=== PATIENT | female | born 1970 | race Caucasian/White ===

== ENCOUNTER 2016-05-07 21:23 | Emergency (ER) | payer BC ==
[2016-05-07 21:29] VITALS: TEMP 98.8; BMI 44.1
--- NOTE | 2016-05-07 21:37 | EDPRACDOC ---
- General Information Chief Complaint: Generalized Weakness Stated Complaint: CVA Time Seen by Provider: 05/07/16 21:29 Information Source: Patient Mode Of Arrival: Ambulance Home Medications: Home Medications Clopidogrel Bisulfate [Plavix] 75 mg PO DAILY 08/29/14 Duloxetine [Cymbalta] 60 mg PO DAILY 08/29/14 Hydrochlorothiazide 12.5 mg PO DAILY 08/29/14 Lisinopril 20 mg PO DAILY 08/29/14 Montelukast Sodium [Singulair] 10 mg PO HS 08/29/14 Amitriptyline HCl [Elavil] 10 mg PO HS 09/23/14 Omeprazole [Prilosec] 20 mg PO DAILY 09/23/14 Potassium Chloride 20 meq PO BID 09/23/14 Metaxalone [Skelaxin] 800 mg PO TID 09/25/14 TOPIRAMATE (Anticonvulsant) [Topamax] 25 mg PO BID 09/25/14 Atorvastatin [Lipitor 40 mg Tablet] 80 mg PO HS 10/05/14 Albuterol Sulfate 2.5 mg NEB Q4-6H PRN 03/22/15 Gabapentin [Neurontin] 300 mg PO TID 03/22/15 Loratadine [Claritin] 10 mg PO DAILY 03/22/15 Oxycodone HCl [Oxycodone Immediate Release] 10 mg PO QID PRN 03/22/15 Pantoprazole Sodium [Protonix] 40 mg PO BID 03/22/15 Pramipexole Di-HCl [Mirapex] 0.25 mg PO QHS 03/22/15 Ranitidine HCl [Zantac] 300 mg PO DAILY 03/22/15 Valacyclovir HCl [Valtrex] 1,000 mg PO BID PRN 03/22/15 Ibuprofen Tablet [Motrin] 600 mg PO Q6H #30 tab 01/23/16 Albuterol Sulfate [Ventolin Hfa] 1 - 2 puff INH Q4H PRN #1 each 04/07/16 Levofloxacin [Levaquin] 750 mg PO DAILY #10 tab 04/07/16 Prednisone [Sterapred DS 10 mg/12 day pack] 48 tab PO DIR #1 pack 04/07/16 Ketoprofen 50 mg PO BID PRN #20 capsule 05/08/16 Allergies/Adverse Reactions: Allergies Allergy/AdvReac Type Severity Reaction Status Date / Time ceftriaxone sodium Allergy Mild rash Verified 05/07/16 21:30 [From Rocephin] - History of Present Illness Onset: 1999 Exact Onset of Symptoms: Known Date Symptoms Started: 05/07/16 Time Symptoms Started: 20:00 HPI: PT STATES SHE HAS NOT FELT WELL "ALL DAY", COMPLAINED OF FEELING GENERALLY WEAK , STATES SHE WAS AT WORK AT 1999 WHEN SHE DEVELOPED RIGHT SIDED HEADACHE, DESCRIBED THROBBING AND SEVERE, COMPLAINS OF "NUMBNESS AND WEAKNESS" IN LEFT ARM AND HAND. PT DENIES CP OR SOBR, NO N/V/D. Symptoms Started: Reports: Suddenly, With light exertion Symptoms Description: Constant Weakness: Left: Arm Symptoms: Reports: Numbness, Weak. Denies: Change of vision, Difficult speech, Faintness, Imbalance, Near Syncope, On Med questionable toxic, Syncope, Tinnitus , Vertigo Symptom Severity: Reports: Unable to performs ADL's Relevant History of: Reports: CVA. Denies: Anemia, DM, Electrolyte disorder, GI Bleed, CA, TIA Associated signs and symptoms:: Reports: Headache. Denies: GI Bleed, Chest pain , Diarrhea, Fever, Nausea, Palpitations, Vomiting ED Past Medical History - History Reviewed Yes Nurses notes reviewed and agree except as marked - Patient Medical History Neurological History: Reports: Cerebrovascular Accident Cardiac History: Reports: Hypertension, Hypercholesterolemia Respiratory History: Reports: Asthma, COPD GI/ History: Reports: Gastroesophageal Reflux, Ulcer Musculoskeletal History: Reports: Arthritis Psychological History: Reports: Anxiety. Denies: Depression, Substance Use Disorder Surgical History: Reports: Hysterectomy - Family Medical History Reports: Hypertension (SIS), Diabetes (DAD), Cancer (MOM, DAD), Stroke (SIS), Cardiac Disorders (DAD) - Social Medical History Smoking Status: Heavy tobacco smoker (5 or more cigarettes/day or daily pipe/ cigar) Social History: Denies: Substance Use Disorder ETOH: Social Substance Abuse: None EDM Review of Systems - Review of Systems Constitutional: negative: Chills, Fever Eyes: negative: Blurred Vision, Double Vision Ears: negative: Drainage Throat: negative: Pain Nose: negative: Congestion, Discharge Respiratory: negative: Cough, Shortness of Breath, Wheezing Cardiovascular: negative: Chest Pain, Palpitations Gastrointestinal: negative: Diarrhea, Nausea, Pain, Vomiting Genitourinary: negative: Dysuria, Frequency Neurological: Headache, Numbness, Weakness. negative: Dizziness, Speech Difficulty, Changes in Orientation Musculoskeletal: No Symptoms Reported Integumentary: No Symptoms Reported - Physical Exam Constitutional: Alert (Awake), No apparent distress Oriented to: Time, Person, Place Last recorded Vital Signs: Last Vital Signs Temp 98.8 F 05/07/16 21:25 Pulse 84 05/07/16 21:25 Resp 20 05/07/16 21:25 BP 159/93 05/07/16 21:25 Pulse Ox 94 05/07/16 21:25 Oxygen Pulse Oxygen Saturation 94 O2 Device Room Air Oxygen Flow Rate Fraction of Inspired Oxygen ( FIO2) - HEENT Head: Normal ( normocephalic) Eye Exam: Normal (PERRL, EOMI, Sclera white) Oropharynx: Normal (Pharynx:Moist without exudate,Gums-no swelling) Tympanic Membrane: Normal ENT EAC: Normal TMJ: Normal Nose: No Symptoms Reported (septum midline) Neck: Normal (FROM, trachea at midline) - Respiratory/Cardiovascular Respiratory: Normal - CTA (BBS clear to auscultation without adventitious sounds ) Cardiovascular: Normal (RRR without murmur, gallop or rub) - GI Auscultation: Normal (NABS) Palpation: Normal (Soft,No rebound or guarding, non distended) Tenderness: Non tender Easley's Sign: Negative - Musculoskeletal Back: Normal (Non-Tender) Extremities: Normal (Normal tone, Pulses 2+ No cyanosis or edema, FROM) - Integumentary Skin: Normal, Warm, Dry Lymphatics: Normal (no adenopathy) - Neurologic Memory Impaired: Normal Motor Function: Normal (Normal tone, Pulses 2+ No cyanosis or edema, FROM) Cranial Nerve: Normal (CN II-X11 intact sensation, strength 5/5) Cerebellar: Normal Mood Description: Normal Perception: Normal NIH Stroke Scale Initial Evaluation Level of Consciousness: Alert LOC- Question: Answers Both Correctly LOC Commands: Both Task Correctly Best Gaze: Normal Visual: No Visual Loss Facial Palsy: Normal Movement Motor Arm LEFT: No Drift Motor Arm RIGHT: No Drift Motor Leg LEFT: No Drift Motor Leg RIGHT: No Drift Limb Ataxia: Absent Sensory: Normal Best Language: No Aphasia Dysarthria: Normal Extinction and Inattention: No Abnormality (Neglect) Score: 0out of42 - Differential Diagnosis CVA, Dehydration, Electrolyte disorder, SAH, TIA - Re-evaluation Re-evaluation 1 Re-evaluation Time: 00:24 (HEADACHE IMPROVED, NEURO EXAM INTACT, PT PUSHES HERSELF UP IN THE BED USING LEFT ARM WITHOUT DIFFICULTY) - Results 05/07/16 22:26 05/07/16 22:26 05/08/16 00:24 Laboratory Results - last 24 hr 05/07/16 05/07/16 05/07/16 22:26 22:26 22:26 WBC 12.0 H RBC 4.99 Hgb 14.6 Hct 43.8 MCV 88 MCH 29.2 MCHC 33.2 RDW 14.3 Plt Count 379 MPV 7.9 Neut % (Auto) 61.8 Lymph % (Auto) 30.2 [place] % (Auto) 6.1 Eos % (Auto) 1.5 Baso % (Auto) 0.4 Absolute Neuts (auto) 7.32 Absolute Lymphs (auto) 3.60 PT 10.4 INR 1.0 APTT 24.5 Sodium 139 Potassium 3.6 Chloride 101 Carbon Dioxide 28 Anion Gap 14 BUN 15 Creatinine 0.80 Estimated GFR (MDRD) > 60 Glucose 96 Calculated Osmolality 269 L Calcium 9.2 Total Bilirubin 0.5 AST 28 ALT 35 Alkaline Phosphatase 75 Troponin I < 0.01 Total Protein 7.4 Albumin 4.0 - EKG EKG #1 EKG Time: 22:50 -: Yes EKG interpreted by me Rate: bpm: 73 [place]: Normal Rhythm: NSR Block: None Hypertrophy: None ST: Normal Comparison: 04/28/15 (NO CHANGE) - Diagnostic Imaging CXR Image interpreted by: Radiologist PORTABLE CHEST 1 VIEW COMPARISON: Portable exam 2144 hours compared to 04/07/2016 FINDINGS: Normal heart size, mediastinal contours, and pulmonary vascularity. Lungs clear. No pleural effusion or pneumothorax. Bones unremarkable. IMPRESSION: No acute abnormalities. CT HEAD Image interpreted by: Radiologist CT HEAD WITHOUT CONTRAST TECHNIQUE: Contiguous axial images were obtained from the base of the skull through the vertex without intravenous contrast. COMPARISON: 01/22/2016 FINDINGS: Normal ventricular morphology. No midline shift or mass effect. Normal appearance of brain parenchyma. No intracranial hemorrhage, mass lesion or evidence acute infarction. No extra-axial fluid collections. Deformity at medial wall LEFT orbit consistent with old fracture. Small amount of fluid or mucus within sphenoid sinus. Remaining bones and sinuses unremarkable. IMPRESSION: No acute intracranial abnormalities. Small amount of fluid or mucus within sphenoid sinus. Decision Time to Discharge: 00:26 - Departure Disposition: Home Condition: Stable Final Diagnosis: COMPLEX MIGRAINE Instructions: Migraine Headache (ED) Education/Counseling Given To: Patient Education/Counseling Given Regarding: Diagnosis, Treatment, Prognosis, Follow Up Referrals: Eleno Carlos MD [Staff Physician] - One Week Prescriptions: Ketoprofen 50 mg PO BID PRN #20 capsule PRN Reason: Pain Forms: Excuse Note Additional Instructions: REST, DRINK PLENTY OF FLUIDS, RETURN TO THE ED FOR ANY WORSENING SYMPTOMS OR CONCERNS.
[2016-05-07] MEDS ORDERED: HYDROmorphone 1 MG INJECTION IV ONE (21:38)
[2016-05-07] MEDS ORDERED: ONDANSETRON HCL 4 MG/2 ML VIAL IV ONE (21:38)
[2016-05-07] MEDS ORDERED: SODIUM CHLORIDE 0.9% 10 ML FLUSH FLUSH PRN (21:38)
--- NOTE | 2016-05-07 22:19 | DIRPT ---
CLINICAL DATA: RIGHT side headache, left-sided weakness, has not felt well all day, numbness and weakness of LEFT hand and arm, history hypertension, asthma, COPD EXAM: PORTABLE CHEST 1 VIEW COMPARISON: Portable exam 2144 hours compared to 04/07/2016 FINDINGS: Normal heart size, mediastinal contours, and pulmonary vascularity. Lungs clear. No pleural effusion or pneumothorax. Bones unremarkable. IMPRESSION: No acute abnormalities. Electronically Signed By: Vishal James M.D. On: 05/07/2016 22:16
--- NOTE | 2016-05-07 22:30 | DIRPT ---
CLINICAL DATA: Frontal headache, LEFT arm numbness, history stroke EXAM: CT HEAD WITHOUT CONTRAST TECHNIQUE: Contiguous axial images were obtained from the base of the skull through the vertex without intravenous contrast. COMPARISON: 01/22/2016 FINDINGS: Normal ventricular morphology. No midline shift or mass effect. Normal appearance of brain parenchyma. No intracranial hemorrhage, mass lesion or evidence acute infarction. No extra-axial fluid collections. Deformity at medial wall LEFT orbit consistent with old fracture. Small amount of fluid or mucus within sphenoid sinus. Remaining bones and sinuses unremarkable. IMPRESSION: No acute intracranial abnormalities. Small amount of fluid or mucus within sphenoid sinus. Electronically Signed By: Vishal James M.D. On: 05/07/2016 22:28
[2016-05-07 23:02] LABS: AUTOMATED BASOPHIL 0.4 % (0-2); AUTOMATED EOSINOPHIL 1.5 % (0-5); AUTOMATED LYMPH 30.2 % (17-44); AUTOMATED MONOCYTE 6.1 % (3-10); AUTOMATED NEUTROPHIL 61.8 % (45-76); MPV 7.9 fL (7.4-10.4)
[2016-05-07 23:16] LABS: PARTIAL THROMB. TIME 24.5 SEC (22-35)
[2016-05-07 23:19] LABS: BLOOD UREA NITROGEN 15 MG/DL (7-17); CALCIUM 9.2 MG/DL (8.4-10.2); CALCULATED OSMOLALITY 269 MOs/Kg (270-290); CHLORIDE 101 mEq/L (98-107); GLUCOSE 96 MG/DL (70-99); SODIUM LEVEL 139 mEq/L (137-146); TOTAL PROTEIN 7.4 G/DL (6.3-8.2)
[2016-05-08 00:34] VITALS: BP 142/72; PULSE 76
== END 2016-05-08 00:40 | disposition home or self-care (01) ==
LOC: ED 21:23
DX: G43.109 Migraine with aura, not intractable, without status migrainosus (principal)
CPT/HCPCS: 36415; 70450; 71010; 80053; 84484; 85025; 85610; 85730; 93005; 96374; 96375; 99284; J1170; J2405

== ENCOUNTER 2016-05-28 20:07 | Emergency (ER) | payer BC ==
[2016-05-28 20:09] VITALS: BMI 44.1
[2016-05-28 20:28] VITALS: TEMP 98.4
--- NOTE | 2016-05-28 22:16 | EDPRACDOC ---
- General Information Chief Complaint: Lower Leg Pain Stated Complaint: SOMETHING POPPED IN LT CALF WHILE WALKING Time Seen by Provider: 05/28/16 22:08 Information Source: Patient Mode Of Arrival: Alf Home Medications: Home Medications Clopidogrel Bisulfate [Plavix] 75 mg PO DAILY 08/29/14 Duloxetine [Cymbalta] 60 mg PO DAILY 08/29/14 Hydrochlorothiazide 12.5 mg PO DAILY 08/29/14 Lisinopril 20 mg PO DAILY 08/29/14 Montelukast Sodium [Singulair] 10 mg PO HS 08/29/14 Amitriptyline HCl [Elavil] 10 mg PO HS 09/23/14 Omeprazole [Prilosec] 20 mg PO DAILY 09/23/14 Potassium Chloride 20 meq PO BID 09/23/14 Metaxalone [Skelaxin] 800 mg PO TID 09/25/14 TOPIRAMATE (Anticonvulsant) [Topamax] 25 mg PO BID 09/25/14 Atorvastatin [Lipitor 40 mg Tablet] 80 mg PO HS 10/05/14 Albuterol Sulfate 2.5 mg NEB Q4-6H PRN 03/22/15 Gabapentin [Neurontin] 300 mg PO TID 03/22/15 Loratadine [Claritin] 10 mg PO DAILY 03/22/15 Oxycodone HCl [Oxycodone Immediate Release] 10 mg PO QID PRN 03/22/15 Pantoprazole Sodium [Protonix] 40 mg PO BID 03/22/15 Pramipexole Di-HCl [Mirapex] 0.25 mg PO QHS 03/22/15 Ranitidine HCl [Zantac] 300 mg PO DAILY 03/22/15 Valacyclovir HCl [Valtrex] 1,000 mg PO BID PRN 03/22/15 Ibuprofen Tablet [Motrin] 600 mg PO Q6H #30 tab 01/23/16 Albuterol Sulfate [Ventolin Hfa] 1 - 2 puff INH Q4H PRN #1 each 04/07/16 Levofloxacin [Levaquin] 750 mg PO DAILY #10 tab 04/07/16 Prednisone [Sterapred DS 10 mg/12 day pack] 48 tab PO DIR #1 pack 04/07/16 Ketoprofen 50 mg PO BID PRN #20 capsule 05/08/16 Allergies/Adverse Reactions: Allergies Allergy/AdvReac Type Severity Reaction Status Date / Time ceftriaxone sodium Allergy Mild rash Verified 05/07/16 21:30 [From Rocephin] - History of Present Illness Onset: [employer] HPI: LEFT CALF PAIN, STARTING TODAY, AFTER AMBULATING. STATES SHE FELT A POP IN HER CALF FOR EARLIER WELL. NO NUMBNESS TINGLING WEAKNESS, NO SWELLING OF THE LEG, NO TRAUMA, NO TROUBLE MOVING ANKLE OR KNEE. EXACT SAME THING HAPPEN IN THE RIGHT CALF 1 MONTH AGO AND IS STILL BOTHERING HER WELL. NO CHEST PAIN SHORTNESS OF BREATH. NO HISTORY OF DVT. ED Past Medical History - History Reviewed Yes Nurses notes reviewed and agree except as marked - Patient Medical History Neurological History: Reports: Cerebrovascular Accident Cardiac History: Reports: Hypertension, Hypercholesterolemia Respiratory History: Reports: Asthma, COPD GI/ History: Reports: Gastroesophageal Reflux, Ulcer Musculoskeletal History: Reports: Arthritis Psychological History: Reports: Anxiety. Denies: Depression, Substance Use Disorder Surgical History: Reports: Appendectomy, Hysterectomy - Family Medical History Reports: Hypertension (SIS), Diabetes (DAD), Cancer (MOM, DAD), Stroke (SIS), Cardiac Disorders (DAD) - Social Medical History Smoking Status: Heavy tobacco smoker (5 or more cigarettes/day or daily pipe/ cigar) Social History: Denies: Substance Use Disorder EDM Review of Systems - Review of Systems ROS Negative Except as Marked: Yes All systems reviewed and were negative except as marked - Physical Exam Constitutional: No apparent distress, Alert Last recorded Vital Signs: Last Vital Signs Temp 98.4 F 05/28/16 20:25 Pulse 93 05/28/16 20:25 Resp 20 05/28/16 20:25 BP 146/86 05/28/16 20:25 Pulse Ox 95 05/28/16 20:25 Oxygen Pulse Oxygen Saturation 95 O2 Device Room Air Oxygen Flow Rate Fraction of Inspired Oxygen ( FIO2) ED Low Extremities Phys Exam - Thigh Bilateral Thigh Symptoms: Normal - Knee Bilateral Knee Symptoms: Normal Knee Ligaments: Normal Knee Meniscus: Normal - Lower Leg Bilateral Lower Leg Symptoms: Normal, Mild Tenderness (LEFT CALF MILDLY TENDER PALPATION) , Other (BILATERAL TONSIL TESTS WITHIN NORMAL LIMITS.). negative: Swelling, Deformity, Moderate Tenderness, Severe Tenderness - Foot Bilateral Foot Symptoms: Normal - Departure Disposition: Inpatient Rehab Unit Condition: Stable Final Diagnosis: Gastrocnemius strain, left Qualifiers: Encounter type: initial encounter Qualified Code(s): S86.112A - Strain of other muscle(s) and tendon(s) of posterior muscle group at lower leg level, left leg, initial encounter Instructions: Muscle Strain (ED)ALEXA: Routine Care for Injuries Education/Counseling Given To: Patient Education/Counseling Given Regarding: Diagnosis, Treatment, Prognosis Referrals: Jack Ji PA [Primary Care Provider] - One Week Prescriptions: No Action Montelukast Sodium [Singulair] 10 mg PO HS Hydrochlorothiazide 12.5 mg PO DAILY Duloxetine [Cymbalta] 60 mg PO DAILY Lisinopril 20 mg PO DAILY Clopidogrel Bisulfate [Plavix] 75 mg PO DAILY Omeprazole [Prilosec] 20 mg PO DAILY Amitriptyline HCl [Elavil] 10 mg PO HS Potassium Chloride 20 meq PO BID TOPIRAMATE (Anticonvulsant) [Topamax] 25 mg PO BID Metaxalone [Skelaxin] 800 mg PO TID Atorvastatin [Lipitor 40 mg Tablet] 80 mg PO HS Gabapentin [Neurontin] 300 mg PO TID Pramipexole Di-HCl [Mirapex] 0.25 mg PO QHS Oxycodone HCl [Oxycodone Immediate Release] 10 mg PO QID PRN PRN Reason: Pain Valacyclovir HCl [Valtrex] 1,000 mg PO BID PRN PRN Reason: FLARE UP Ranitidine HCl [Zantac] 300 mg PO DAILY Pantoprazole Sodium [Protonix] 40 mg PO BID Albuterol Sulfate 2.5 mg NEB Q4-6H PRN PRN Reason: Shortness Of Breath Loratadine [Claritin] 10 mg PO DAILY Ibuprofen Tablet [Motrin] 600 mg PO Q6H #30 tab Albuterol Sulfate [Ventolin Hfa] 1 - 2 puff INH Q4H PRN #1 each PRN Reason: SHORTNESS OF BREATH Levofloxacin [Levaquin] 750 mg PO DAILY #10 tab Prednisone [Sterapred DS 10 mg/12 day pack] 48 tab PO DIR #1 pack Ketoprofen 50 mg PO BID PRN #20 capsule PRN Reason: Pain Additional Instructions: OVER THE COUNTER IBUPROFEN OR ACETAMINOPHEN
[2016-05-28] MEDS ORDERED: IBUPROFEN 800 MG TAB PO ONE (22:19)
[2016-05-28 22:24] VITALS: BP 143/88; PULSE 88
== END 2016-05-28 22:23 | disposition home or self-care (01) ==
LOC: ED 20:07
DX: S86.112A Strain of other muscle(s) and tendon(s) of posterior muscle group at lower leg level, left leg, initial encounter (principal); X58.XXXA Exposure to other specified factors, initial encounter; Y93.01 Activity, walking, marching and hiking
CPT/HCPCS: 99282